=== PATIENT | female | born 1985 | race Caucasian/White ===

== ENCOUNTER 2017-01-20 13:00 | Emergency (ER) | payer MEDICAID ==
[2017-01-20 13:15] VITALS: TEMP 98.2
--- NOTE | 2017-01-20 13:45 | CPEKG ---
Heart Rate: 65 RR Interval: 923 P-R Interval: 172 QRSD Interval: 72 QT Interval: 376 QTC Interval: 391 P [place]: 62 QRS [place]: 63 T Wave [place]: 69 EKG Severity - NORMAL ECG - EKG Impression: SINUS RHYTHM Electronically Signed By: Quynh Epperson 20-Jan-2017 20:44:33
--- NOTE | 2017-01-20 14:09 | EDPHY ---
H & P Time Seen by Provider: 01/20/17 13:47 HPI/ROS: CHIEF COMPLAINT: Left-sided body pain, chest pain HISTORY OF PRESENT ILLNESS: Patient is a 31-year-old female who presents emergency department with left-sided chest pain. Her symptoms started Thursday evening while in [place]. She came down to [place] because of the pain. It was primarily on the left side. It was not positional or worse with deep breath. She had no cough or fever. No shortness of breath. No leg pain or swelling. Patient has had no nausea, vomiting or diaphoresis. Patient also has had intermittent dizziness. She describes this more as lightheadedness. No neck pain. No visual change. No weakness or numbness. REVIEW OF SYSTEMS: My complete review of systems is negative except as mentioned in the HPI. Past Medical/Surgical History: Includes left fibroid removal and tubal ligation Social history: Occasional THC. She does not use tobacco. Denies recent alcohol. Smoking Status: Current every day smoker Physical Exam: Vitals noted. 98/52 GENERAL: Well-appearing, in no acute distress, alert. HEENT: Eyes normal to inspection, normal pharynx, no signs of dehydration. NECK: No thyromegaly, no lymphadenopathy, supple. RESPIRATORY: Clear to auscultation bilaterally, no rales, rhonchi or wheezing. CVS: Regular rate and rhythm, no rubs, murmurs, or gallops. Chest wall: Left-sided chest wall tenderness palpation ABDOMEN: Soft, nontender, nondistended, no organomegaly. BACK: Normal to inspection, no CVA tenderness. SKIN: Normal color, no rash, warm, dry. No pallor. EXTREMITIES: No pedal edema, no calf tenderness, no Homans sign or cords, no joint swelling. NEURO/PSYCH: Higher functions: Alert and Oriented x3. Normal speech and cognition. Normal mood and affect. Cranial nerves: Normal as tested. Cerebellar: Normal as tested. Good finger to nose, good [id number], normal gait. Peripheral exam: Normal motor exam. Normal sensation. Constitutional: Initial Vital Signs Temperature (C) 36.8 C 01/20/17 13:12 Heart Rate 83 01/20/17 13:12 Respiratory Rate 18 01/20/17 13:12 Blood Pressure 98/52 L 01/20/17 13:12 O2 Sat (%) 98 07/11/17 13:12 O2 Delivery Mode Room Air Allergies/Adverse Reactions: latex Allergy (Verified 01/20/17 13:11) Home Medications: Medication Instructions Recorded NK [No Known Home Meds] 01/20/17 Medical Decision Making - Diagnostics Imaging Results: Imaging Impressions Chest X-Ray 01/20/17 14:32 Impression: Normal. ED Course/Re-evaluation: In the emergency department I discussed possible etiologies with the patient. I answered all her questions. An IV was placed. Laboratory studies were ordered. Patient given aspirin 324 mg orally. EKG shows normal sinus rhythm, normal rate, normal axis, normal intervals. There are no ST or T-wave abnormalities. EKG is normal as interpreted by me. Patient's CBC and chemistry were normal. D-dimer and troponin were negative. Chest x-ray: No acute disease. I discussed the results with the patient. I answered all her questions. She had no chest pain on recheck. Gave patient warnings prior to leaving. She will return with worsening symptoms. Differential Diagnosis: My differential includes but is not limited to ACS, acute CT, dissection, aneurysm, pneumonia, pneumothorax, bronchitis, PE, CVA - Data Points Laboratory Results: Laboratory Results 01/20/17 13:35 01/20/17 13:35 01/20/17 01/20/17 01/20/17 13:35 13:35 13:35 WBC RBC Hgb Hct MCV MCH MCHC RDW Plt Count MPV Neut % (Auto) Lymph % (Auto) [place] % (Auto) Eos % (Auto) Baso % (Auto) Nucleat RBC Rel Count Absolute Neuts (auto) Absolute Lymphs (auto) Absolute Monos (auto) Absolute Eos (auto) Absolute Basos (auto) Absolute Nucleated RBC Immature Gran % Immature Gran # D-Dimer < 0.27 ug/mLFEU ug/mLFEU (0.00-0.50) Sodium 142 mEq/L mEq/L (134-144) Potassium 4.3 mEq/L mEq/L (3.5-5.2) Chloride 111 mEq/L H mEq/L (97-110) Carbon Dioxide 19 mEq/l L mEq/l (22-31) Anion Gap 12 mEq/L mEq/L (8-16) BUN 11 mg/dL mg/dL (7-23) Creatinine 0.8 mg/dL mg/dL (0.6-1.0) Estimated GFR > 60 Glucose 106 mg/dL H mg/dL (70-100) Calcium 10.1 mg/dL mg/dL (8.5-10.4) Troponin I < 0.012 ng/mL ng/mL (0-0.034) Beta HCG, Qual NEGATIVE 01/20/17 13:35 WBC 7.70 10^3/uL 10^3/uL (3.80-9.50) RBC 4.37 10^6/uL 10^6/uL (4.18-5.33) Hgb 14.0 g/dL g/dL (12.6-16.3) Hct 41.0 % % (38.0-47.0) MCV 93.8 fL fL (81.5-99.8) MCH 32.0 pg pg (27.9-34.1) MCHC 34.1 g/dL g/dL (32.4-36.7) RDW 12.6 % % (11.5-15.2) Plt Count 237 10^3/uL 10^3/uL (150-400) MPV 10.3 fL fL (8.7-11.7) Neut % (Auto) 66.9 % % (39.3-74.2) Lymph % (Auto) 24.8 % % (15.0-45.0) [place] % (Auto) 6.1 % % (4.5-13.0) Eos % (Auto) 0.9 % % (0.6-7.6) Baso % (Auto) 0.8 % % (0.3-1.7) Nucleat RBC Rel Count 0.0 % % (0.0-0.2) Absolute Neuts (auto) 5.15 10^3/uL 10^3/uL (1.70-6.50) Absolute Lymphs (auto) 1.91 10^3/uL 10^3/uL (1.00-3.00) Absolute Monos (auto) 0.47 10^3/uL 10^3/uL (0.30-0.80) Absolute Eos (auto) 0.07 10^3/uL 10^3/uL (0.03-0.40) Absolute Basos (auto) 0.06 10^3/uL 10^3/uL (0.02-0.10) Absolute Nucleated RBC 0.00 10^3/uL 10^3/uL (0-0.01) Immature Gran % 0.5 % % (0.0-1.1) Immature Gran # 0.04 10^3/uL 10^3/uL (0.00-0.10) D-Dimer Sodium Potassium Chloride Carbon Dioxide Anion Gap BUN Creatinine Estimated GFR Glucose Calcium Troponin I Beta HCG, Qual Medications Given: Discontinued Medications Aspirin (Aspirin) 324 mg PO EDNOW ONE Stop: 01/20/17 14:32 Last Admin: 01/20/17 14:37 Dose: 324 mg Departure - Departure Disposition: Home, Routine, Self-Care Clinical Impression: Shortness of breath Chest pain Qualifiers: Chest pain type: unspecified Qualified Code(s): R07.9 - Chest pain, unspecified Condition: Good Instructions: Dyspnea (ED), Chest Pain (ED) Additional Instructions: Return with increasing chest pain, shortness of breath, dizziness, headache, or any other concerns. Referrals: Jessica Macdonald MD [Primary Care Provider] - 1-2 days without fail
[2017-01-20] MEDS ORDERED: ASPIRIN 81 MG CHEWABLE TAB PO ONE (14:31)
[2017-01-20 14:41] VITALS: RESP 14; O2SAT 99
[2017-01-20 14:45] LABS: % IMMATURE GRANULYOCYTES 0.5 % (0.0-1.1); ABSOLUTE IMMATURE GRANULOCYTES 0.04 10^3/uL (0.00-0.10); ADD DIFF? NO; ADD MORPH? NO; ADD SCAN? NO; ATYPICAL LYMPHOCYTE FLAG 0 (0-99); FRAGMENT RBC FLAG 0 (0-99); LEFT SHIFT FLG 0 (0-99); LIPEMIA HEMOLYSIS FLAG 90 (0-99); MEAN CELL HEMOGLOBIN CONCENTR. 34.1 g/dL (32.4-36.7); MEAN CELL VOLUME 93.8 fL (81.5-99.8); MEAN PLATELET VOLUME 10.3 fL (8.7-11.7); PLATELET CLUMPS FLAG 0 (0-99); PLATELET COUNT 237 10^3/uL (150-400); RED BLOOD CELL COUNT 4.37 10^6/uL (4.18-5.33); RED CELL DISTRIBUTION WIDTH 12.6 % (11.5-15.2)
[2017-01-20 14:55] LABS: ANION GAP 12 mEq/L (8-16); CALCIUM 10.1 mg/dL (8.5-10.4); CARBON DIOXIDE 19 mEq/l (22-31); CHLORIDE 111 mEq/L (97-110); CREATININE 0.8 mg/dL (0.6-1.0); GLOMERULAR FILTRATION RATE > 60; GLUCOSE 106 mg/dL (70-100); POTASSIUM 4.3 mEq/L (3.5-5.2); SODIUM 142 mEq/L (134-144)
[2017-01-20 15:06] LABS: TROPONIN I < 0.012 ng/mL (0-0.034)
[2017-01-20 15:59] VITALS: BP 105/67; PULSE 75
== END 2017-01-20 16:05 | disposition home or self-care (01) ==
DX: R06.02 Shortness of breath (principal); R07.9 Chest pain, unspecified; F17.200 Nicotine dependence, unspecified, uncomplicated; Z91.040 Latex allergy status